=== PATIENT | female | born 1990 | race American Indian/Alaskan Native ===

== ENCOUNTER 2022-03-25 06:20 | Inpatient (IN) | payer MEDICAID ==
[2022-03-25] MEDS: LACTATED RINGERS 1,000 ML IV SCH ×2 (07:51→10:52)
[2022-03-25] MEDS ORDERED: LACTATED RINGERS 2,000 ML ONE (07:57)
[2022-03-25] MEDS ORDERED: METOCLOPRAMIDE 10 MG/2 ML INJ IV SCH (08:00)
[2022-03-25] MEDS ORDERED: BICITRA ORAL LIQD 30ML PO SCH (08:00)
[2022-03-25] MEDS ORDERED: FAMOTIDINE 20 MG/2 ML INJ IV SCH (08:00)
--- NOTE | 2022-03-25 08:13 | Ultrasound Report ---
ULTRASOUND OBSTETRIC COMPLETE INDICATION / CLINICAL INFORMATION: contractions; and rule out rupture of membranes. Clinical Gestational Age (GA) in weeks.days: 38.0 TECHNIQUE: Transabdominal. COMPARISON: None available. FINDINGS: NUMBER: Single PRESENTATION: cephalic PLACENTA: Not evaluated. MATERNAL ADNEXA: No significant abnormality. AMNIOTIC FLUID VOLUME: normal AMNIOTIC FLUID INDEX (NATALIE) in cm (if measured): 12.1 ANATOMY: anatomical survey was not performed. MEASUREMENTS: - Biparietal Diameter = 9.3 cm = 37.5 weeks.days - Head Circumference = 33.9 cm = 39.0 weeks.days - Abdominal Circumference = 36.5 cm = 40.3 weeks.days - Femur Length = 7.2 cm = 36.4 weeks.days - Estimated Weight (in grams, if calculated): 3701 +/- 548 - Heart Rate (beats per minute): 152 ADDITIONAL FINDINGS: None. PERCENTILE ESTIMATED WEIGHT (if calculated): 87 AVERAGE ULTRASOUND AGE (AUA) in weeks.days = 38.3 IMPRESSION: 1. Single intrauterine with AUA of 28.3 weeks.days 2. No significant sonographic abnormality. 3. NATALIE is within normal limits measuring 12.1 cm. Signer Name: Rodney Morrow Jr, MD Signed: 03/25/2022 8:08 AM Workstation Name: [id number]
[2022-03-25] MEDS ORDERED: BUPIVACAINE/PF (0.25%) 2.5 MG/ML 30 ML VIAL INFILTRATI ONE (08:45)
[2022-03-25] MEDS ORDERED: dexAMETHasone 20 MG/5 ML VIAL ONE (08:50)
[2022-03-25] MEDS ORDERED: KETOROLAC 30 MG/1 ML INJ ONE (08:50)
[2022-03-25] MEDS ORDERED: ONDANSETRON 4 MG/2 ML INJ ONE (08:50)
[2022-03-25] MEDS ORDERED: fentaNYL 100 MCG/2 ML INJ ONE (08:51)
[2022-03-25] MEDS ORDERED: OXYTOCIN DRIP 30 UNITS/500 ML BAG IV SCH ×3 (09:00→20:49)
[2022-03-25] MEDS ORDERED: ceFAZolin/Water 2 GM/20 ML 2 GM/20 ML SYRINGE IV NR (09:00)
--- NOTE | 2022-03-25 09:02 | Anesthesia Consultation ---
Anesthesia Consult and Med Hx - Airway Anesthetic Teeth Evaluation: Good ROM Head & Neck: Adequate Mental/Hyoid Distance: Adequate Mallampati Class: Class II Intubation Access Assessment: Probably Good - Pulmonary Exam CTA: Yes - Cardiac Exam Cardiac Exam: RRR - Pre-Operative Health Status ASA Pre-Surgery Classification: ASA2 Proposed Anesthetic Plan: Spinal Nerve Block: TAP ALEXANDREA - Pulmonary Hx Smoking: No Hx Asthma: No COPD: No Hx Pneumonia: No - Cardiovascular System Hx Hypertension: No - Central Nervous System Hx Seizures: No Hx Psychiatric Problems: No - Endocrine Hx Renal Disease: No Hx End Stage Renal Disease: No Hx Hypothyroidism: No Hx Hyperthyroidism: No - Hematic Hx Anemia: No Hx Sickle Cell Disease: No - Other Systems Hx Alcohol Use: No
[2022-03-25] MEDS ORDERED: HYDROmorphone 1 MG/1 ML INJ IV PRN ×2 (09:04)
[2022-03-25] MEDS ORDERED: PROMETHAZINE 25 MG TAB PO PRN (09:04)
[2022-03-25] MEDS ORDERED: NALOXONE 0.4 MG/1 ML INJ IV PRN ×3 (09:04→20:49)
[2022-03-25] MEDS ORDERED: PROMETHAZINE 25 MG RECT SUPP PR PRN (09:04)
[2022-03-25 09:26] LABS: Basophils # (Auto) 0.1 K/mm3 (0.0-0.1); Basophils % (Auto) 0.9 % (0.0-1.8); Eosinophils # (Auto) 0.1 K/mm3 (0.0-0.4); Eosinophils % (Auto) 0.7 % (0.0-4.3); Hematocrit 34.9 % (30.3-42.9); Hemoglobin 11.4 gm/dl (10.1-14.3); Lymphocytes # (Auto) 2.1 K/mm3 (1.2-5.4); Lymphocytes % (Auto) 22.7 % (13.4-35.0); Mean Corpuscular HGB Conc 33 % (30-34); Mean Corpuscular Volume 82 fl (79-97); Monocytes # (Auto) 0.5 K/mm3 (0.0-0.8); Monocytes % (Auto) 5.1 % (0.0-7.3); Platelet Count 228 K/mm3 (140-440); Red Blood Count 4.26 M/mm3 (3.65-5.03)
--- NOTE | 2022-03-25 10:28 | History and Physical Report ---
History of Present Illness Date of examination: 03/25/22 Date of admission: 03/25/22 Chief complaint: PROM at 5:30am this morning History of present illness: at 38.4wks by [facility] care with [facility]. Pt came to triage during previous shift with c/o LOF and same confirmed with ROM plus positive. No records were available form [facility] until in the afternoon. Initially pt desired permanent sterilization without any of her tube removed. Pt admits to movement, denies vag bleed or painful contractions or headache. 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 History: herpes (and pt taking valtrex med suppression) Social history: no significant social history - Obstetrical History Expected Date of Delivery: 04/08/22 Actual Gestation: 38 Week(s) 0 Day(s) : 4 Hx # Term Pregnancies: 2 Induced : 1 Number of Living Children: 2 Medications and Allergies Allergies Allergy/AdvReac Type Severity Reaction Status Date / Time No Known Allergies Allergy Unverified 07/26/14 11:44 Home Medications Medication Instructions Recorded Confirmed Last Taken Type Ibuprofen [Motrin] 800 mg PO Q8HR PRN 21 Days #40 03/25/22 Unknown Rx tablet Valacyclovir HCl [Valacyclovir] 1,000 mg PO DAILY 03/25/22 03/25/22 1 Day Ago History ~03/24/22 oxyCODONE /ACETAMINOPHEN [Percocet 1 tab PO Q4HR PRN 21 Days #30 tab 03/25/22 Unknown Rx 5/325] Active Meds: Active Medications Citric Acid/Sodium Citrate (Bicitra Oral Liqd 30ml) 30 ml PO PREOP QUINTIN Stop: 03/25/22 15:00 Famotidine (Famotidine 20 Mg/2 Ml Inj) 20 mg IV PREOP QUINTIN Stop: 03/25/22 15:00 Hydromorphone HCl (Hydromorphone 1 Mg/1 Ml Inj) 0.5 mg IV Q5M PRN PRN Reason: BREAK Hydromorphone HCl (Hydromorphone 1 Mg/1 Ml Inj) 0.5 mg IV Q4H PRN PRN Reason: breakthrough pain > 7/10 Lactated Ringer's (Lactated Ringers) 1,000 mls @ 2,250 mls/hr IV PREOP QUINTIN Stop: 03/26/22 09:27 Oxytocin/Sodium Chloride (Pitocin/Ns 30 Unit/500ml) 30 units in 500 mls @ 0 mls/hr IV TITR QUINTIN; Protocol Cefazolin Sodium (Ancef/Sterile Water 2 Gm/20 Ml) 2 gm in 20 mls @ 80 mls/hr IV PREOP NR; Protocol Stop: 03/25/22 17:00 Metoclopramide HCl (Metoclopramide 10 Mg/2 Ml Inj) 10 mg IV PREOP QUINTIN Stop: 03/25/22 15:00 Naloxone HCl (Naloxone 0.4 Mg/1 Ml Inj) 0.2 mg IV Q2MIN PRN PRN Reason: Res Rate </= 8 or 02 SAT < 92% Promethazine HCl (Promethazine 25 Mg Tab) 25 mg PO Q6H PRN PRN Reason: Nausea And Vomiting Promethazine HCl (Promethazine 25 Mg Rect Supp) 25 mg NH Q6H PRN PRN Reason: Nausea And Vomiting Sodium Chloride (Sodium Chloride 0.9% 10 Ml Flush Syringe) 10 ml IV PRN NR Stop: 04/05/22 23:59 Review of Systems All systems: negative (LOF) - Vital Signs Vital signs: Vital Signs Pulse Pulse Ox 83 99 03/25/22 06:38 03/25/22 06:38 Temp Pulse Resp BP Pulse Ox 99.0 F 105 H 18 134/67 99 03/25/22 07:00 03/25/22 08:55 03/25/22 07:00 03/25/22 07:00 03/25/22 08:55 - Physical Exam Breasts: Positive: deferred Lungs: Positive: Normal air movement Abdomen: Positive: soft Uterus: Positive: enlarged (non-tender gravid) - Obstetrical FHR: category 1 Uterine Contraction Monitor Mode: External Cervical Dilatation: 0.5 (per Dr. Rhodes report) Results Result Diagrams: 03/25/22 08:10 Abnormal lab results 03/25/22 03/25/22 Range/Units 06:55 08:10 MCH 27 L (28-32) pg RDW 16.0 H (13.2-15.2) % Seg Neutrophils % 70.6 H (40.0-70.0) % Membranes Rupture Positive A (Negative) All other labs normal. 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 Admit to labor and delivery for repeat c/section per pt choice; No tubal ligation per pt because she changed her mind. Discussed with her the increased risk of future placenta adhesion/acreta and pt verbalized understanding 2. NICU and Anesthesiologist notified 3. All questions encouraged and answered
[2022-03-25] MEDS ORDERED: WITCH HAZEL/ GLYCERIN PAD TP PRN ×2 (11:34→20:49)
[2022-03-25] MEDS ORDERED: HYDROCORTISONE 25 MG RECTAL SUPP PR PRN ×2 (11:34→20:49)
[2022-03-25] MEDS ORDERED: IBUPROFEN 600 MG TAB PO PRN ×2 (11:34→20:49)
[2022-03-25] MEDS ORDERED: LANOLIN/ZINC/DIMETHICONE (LANSINOH) 7 GM TP PRN ×2 (11:34→20:49)
[2022-03-25] MEDS ORDERED: ONDANSETRON 4 MG/2 ML INJ IV PRN ×2 (11:34→20:49)
[2022-03-25] MEDS ORDERED: ACETAMINOPHEN 325 MG TAB PO PRN ×2 (11:34→20:49)
[2022-03-25] MEDS ORDERED: SENNOSIDES 8.6 MG TAB PO PRN ×2 (11:34→20:49)
[2022-03-25] MEDS ORDERED: AMPICILLIN/NS 2 GM/100 ML 2 GM/100 ML BAG IV ONE (11:40)
[2022-03-25] MEDS ORDERED: ceFAZolin/STERILE WATER 2 GM/20 ML SYRINGE IV ONE (16:18)
[2022-03-25] MEDS ORDERED: LACTATED RINGERS 1,000 ML ONE (16:32)
[2022-03-25] MEDS ORDERED: PHENYLEPHRINE/NS 1,000 MCG/10 ML SYRINGE (OR USE) IV ONE (16:34)
[2022-03-25] MEDS ORDERED: ePHEDrine SULFATE 50 MG/1 ML INJ ONE (16:34)
[2022-03-25] MEDS ORDERED: miSOPROStol 200 MCG TAB ONE (17:03)
[2022-03-25] MEDS ORDERED: miSOPROStol 200 MCG TAB PR ONE (17:05)
--- NOTE | 2022-03-25 18:33 | Progress Note ---
Spinal Anesthesia Block - Spinal Anesthesia Block Start Time: 16:05 Stop Time: 16:07 Performed by:: SMILEY CALLOWAY Procedure: L34 space ID'd prep and draped NSF. Local to skin, introducer, 24 g kit needle inserted. Clear csf, neg heme, positive swirl, nabil well, comfortable. ).75% bupi with dextrose 1.7 ml with 20 mcg fent
--- NOTE | 2022-03-25 18:37 | Progress Note ---
Regional Anesthesia Block - Regional Anesthesia Block Start Time: 18:09 Stop Time: 18:16 Performed By:: SMILEY CALLOWAY Procedure: Bilateral TAP block. Echogenic 20 ga 4 in needle used, US guided using relevant anatomy. Prep NSF, 0.25% bupi 25 ml to each side, neg aspiration, nabil well. Photos with chart
--- NOTE | 2022-03-25 18:57 | Procedure Note ---
OB Delivery Note - Delivery Date of Delivery: 03/25/22 Surgeon: LISA AGOSTO Estimated blood loss: other (821cc by QBL) - Section Preop diagnosis: repeat Postop diagnosis: same (and lysis of adhesions) section procedure: repeat low transverse Disposition: floor Complications: uterine atony Narrative: Date: 03/25/22 Surgeon: Lisa Agosto MD Preop Dx: IUP at 38.0wks, previous c/section x2 Postop Dx: same and uterine atony Procedure : Repeat low transverse section Anesthesia: Spinal Intake: 1900cc Output: 250cc clear EBL: 821cc by QBL After the risks, benefits and alternatives of procedure discussed, patient signed consents and was taken to the operating room. Pt was given spinal anesthesia. After same was adequate, patient was prepped and draped in the usual sterile fashion. Vincent catheter in place and draining clear urine. Pt was given prophylactic antibiotic per protocol and time out was done Pfannenstiel skin incision was made and taken sharply to the fascia and the incision extended using electrocautery. Superior edge of the fascia was grasped with aron clamps and the rectus muscle using blunt dissection and also using electrocautery. Lower portion of the fascia also with electrocautery. Rectus muscle in the midline and Peritoneal cavity entered sharply and the bladder very cephalad but no injury occured. The bladder flap was created sharply using metzenbaum scissors. Lower uterine segment then entered transversely and amniotic sac entered using allys clamps. Uterine incision extended using bandage scissors. Infant delivered, bulb suctioned, cord clamped and baby handed to thomas b. finan centersharlene. Placenta then delivered completely and uterine cavity cleared of all clots and debri. The uterus was not exteriorized and closed in 2 layers using 0-monocryl suture in a running locked fashion and then an additional layer of imbrication suture. Excellent hemostasis noted. The gutters were cleared of clots and debri and anterior peritoneum and rectus muscle with scar reapproximated. Figure of 8 suture placed on left for oozing from rectus muscle that require 3 figure of 8 suture for adequate hemostasis. The remaining rectus muscle reapproximated using 0-vicryl suture in a running fa shion. Rectus fascia closed with 0-vicryl suture and subcutaneous tissue copiously irrigated with normal saline and re-approximated using 3-0 vicryl] suture. Excellent hemostasis remains. The skin was closed with 4-0 monocryl suture and steristrips placed with pressure dressing. Sponge, lap, instrument and needle counts x2 were normal. Patient tolerated the procedure well and was taken to recovery room stable. Uterine atony treated with IV pitocin and cytotec 800mcg per rectum. Findings: Viable female infant, APGARS 9/9 and weight 3590g. Normal uterus, tubes and ovaries. - A at 1 minute: 9 at 5 minutes: 9 Infant Gender: Female (wt 3590g; clear amniotic fluid)
[2022-03-25] MEDS ORDERED: MORPHINE 4 MG/1 ML INJ IV PRN (20:49)
[2022-03-25] MEDS ORDERED: SIMETHICONE 80 MG CHEW TAB PO PRN (20:49)
[2022-03-25] MEDS ORDERED: MAGNESIUM HYDROXIDE (MOM) ORAL LIQD UDC PO PRN (20:49)
[2022-03-25] MEDS ORDERED: IBUPROFEN 800 MG TAB PO PRN (20:49)
[2022-03-25] MEDS ORDERED: D5W/LACTATED RINGERS 1,000 ML IV SCH (22:00)
[2022-03-25] MEDS: MORPHINE 4 MG/1 ML INJ IV PRN (22:21)
[2022-03-26] MEDS: MORPHINE 4 MG/1 ML INJ IV PRN ×2 (02:22→07:49)
[2022-03-26 04:23] LABS: Hemoglobin 9.3 gm/dl (10.1-14.3)
[2022-03-26] MEDS ORDERED: PRENATAL VIT27-FE FUMARATE-FOLIC ACID VIT TAB PO SCH (10:00)
[2022-03-26] MEDS ORDERED: FERROUS SULFATE 325 MG TAB PO SCH (10:00)
[2022-03-26 11:14] LABS: Basophils # (Auto) 0.1 K/mm3 (0.0-0.1); Basophils % (Auto) 0.5 % (0.0-1.8); Eosinophils % (Auto) 0.2 % (0.0-4.3); Hematocrit 32.1 % (30.3-42.9); Hemoglobin 10.5 gm/dl (10.1-14.3); Lymphocytes # (Auto) 2.7 K/mm3 (1.2-5.4); Lymphocytes % (Auto) 16.7 % (13.4-35.0); Mean Corpuscular HGB Conc 33 % (30-34); Mean Corpuscular Volume 82 fl (79-97); Monocytes # (Auto) 1.4 K/mm3 (0.0-0.8); Monocytes % (Auto) 8.7 % (0.0-7.3); Platelet Count 247 K/mm3 (140-440); Red Cell Distribution Width 16.1 % (13.2-15.2)
[2022-03-26] MEDS: FERROUS SULFATE 325 MG TAB PO SCH (11:32)
[2022-03-26] MEDS: oxyCODONE /ACETAMINOPHEN 5-325MG TAB PO PRN ×2 (11:33→19:57)
[2022-03-26] MEDS: PRENATAL VIT27-FE FUMARATE-FOLIC ACID VIT TAB PO SCH (11:33)
[2022-03-26] MEDS: AZITHROMYCIN/NS 500 MG/250 ML 500 MG/250 ML BAG IV SCH (14:20)
[2022-03-26] MEDS: IBUPROFEN 800 MG TAB PO PRN (15:39)
[2022-03-26] MEDS: SIMETHICONE 80 MG CHEW TAB PO PRN (15:43)
--- NOTE | 2022-03-26 16:33 | Post Anesthesia Evaluation ---
- Post Anesthesia Evaluation Patient Participated: Yes Airway Patent: Yes Stable Respiratory Function: Yes Nausea/Vomiting: No Temp > 96.8F: Yes Pain Manageable: Yes Adequeate Hydration: Yes Anesthesia Complications: No Block Receding Appropriately: Yes Patient on Ventilator: No
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
[2022-03-26] MEDS: MAGNESIUM HYDROXIDE (MOM) ORAL LIQD UDC PO PRN (19:58)
[2022-03-27] MEDS: oxyCODONE /ACETAMINOPHEN 5-325MG TAB PO PRN ×3 (04:22→21:01)
[2022-03-27] MEDS: IBUPROFEN 800 MG TAB PO PRN ×2 (04:23→05:52)
[2022-03-27] MEDS: SIMETHICONE 80 MG CHEW TAB PO PRN (09:10)
[2022-03-27] MEDS: PRENATAL VIT27-FE FUMARATE-FOLIC ACID VIT TAB PO SCH (09:10)
[2022-03-27] MEDS: FERROUS SULFATE 325 MG TAB PO SCH (09:12)
--- NOTE | 2022-03-27 11:20 | Progress Note ---
Assessment and Plan A: Postpartm/postop day 2 S/P repeat LTCS with lysis of adhesions. Mild leukocytosis. Anemia. P: Repeat CBC. Iron supplementation. Continue routine /postop care. Anticipate discharge home tomorrow if patient continues to do well. Subjective - Subjective Date of service: 03/27/22 Principal diagnosis: day 2 S/P repeat LTCS with lysis of adhesions Patient reports: appetite normal, voiding normally, pain well controlled, flatus, ambulating normally, no dizzy ambulation, no nauseated : doing well Objective - Vital Signs Latest vital signs: Vital Signs Temp Pulse Resp BP Pulse Ox Pulse Ox 03/27/22 08:30 97 03/27/22 07:32 97.8 F 89 18 101/72 97 03/27/22 06:44 18 03/27/22 05:52 18 03/27/22 05:22 18 03/27/22 04:22 18 03/27/22 01:09 97.9 F 88 20 108/68 97 03/26/22 21:32 99 03/26/22 20:57 18 03/26/22 19:57 18 03/26/22 16:54 98.4 F 89 20 104/62 98 03/26/22 12:12 98.5 F 77 16 106/64 99 Intake and Output 03/26/22 03/27/22 03/27/22 23:59 07:59 15:59 Intake Total 480 360 120 Balance 480 360 120 Intake: Oral 480 360 120 Other: Total, Intake Amount 240 120 120 # Voids Void 1 1 1 - Exam Cardiovascular: Present: Regular rate Lungs: Present: Clear to auscultation Abdomen: Present: normal appearance, soft, normal bowel sounds. Absent: distention, tenderness, guarding, rigidity Uterus: Present: normal, firm, fundal height below umbilicus (fundus firm and midline at 2 FB below umbilicus). Absent: bogginess, tenderness Extremities: Absent: tenderness Incision: Present: dry, intact
[2022-03-27 12:26] LABS: Basophils # (Auto) 0.1 K/mm3 (0.0-0.1); Basophils % (Auto) 0.8 % (0.0-1.8); Eosinophils # (Auto) 0.2 K/mm3 (0.0-0.4); Eosinophils % (Auto) 1.5 % (0.0-4.3); Hematocrit 29.4 % (30.3-42.9); Hemoglobin 9.4 gm/dl (10.1-14.3); Lymphocytes # (Auto) 2.9 K/mm3 (1.2-5.4); Lymphocytes % (Auto) 25.4 % (13.4-35.0); Mean Corpuscular HGB Conc 32 % (30-34); Mean Corpuscular Volume 82 fl (79-97); Monocytes # (Auto) 0.6 K/mm3 (0.0-0.8); Monocytes % (Auto) 4.9 % (0.0-7.3); Platelet Count 265 K/mm3 (140-440); Red Blood Count 3.61 M/mm3 (3.65-5.03); Red Cell Distribution Width 15.6 % (13.2-15.2)
[2022-03-27] MEDS: AZITHROMYCIN/NS 500 MG/250 ML 500 MG/250 ML BAG IV SCH (14:19)
[2022-03-28] MEDS: oxyCODONE /ACETAMINOPHEN 5-325MG TAB PO PRN (06:09)
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
[2022-03-28] MEDS: MAGNESIUM HYDROXIDE (MOM) ORAL LIQD UDC PO PRN (08:58)
[2022-03-28] MEDS: FERROUS SULFATE 325 MG TAB PO SCH (08:59)
[2022-03-28] MEDS ORDERED: DOCUSATE SODIUM 100 MG CAP PO SCH (10:00)
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
[2022-03-28 16:37] VITALS: BP 120/77
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
== END 2022-03-28 17:20 | disposition home or self-care (01) | DRG 765 ==
LOC: TRG 06:20 → APU 06:21 → TRG 08:30 → APU 11:34 → UNDOADMIN 11:34 → EEVIPCON 11:35 → APU 11:35 → OB 19:51
PROVIDERS: ADMIT Obstetrics & Gynecology; ATTEND Obstetrics & Gynecology
PROC: 10D00Z1 Extraction of Products of Conception, Low, Open Approach (ICD-10-PCS; principal; 2022-03-25)
DX: O42.02 Full-term premature rupture of membranes, onset of labor within 24 hours of rupture (principal); O98.52 Other viral diseases complicating childbirth; O34.211 Maternal care for low transverse scar from previous cesarean delivery; Z37.0 Single live birth; Z20.822 Contact with and (suspected) exposure to COVID-19; Z3A.38 38 weeks gestation of pregnancy; B00.9 Herpesviral infection, unspecified; O62.2 Other uterine inertia; F32.A Depression, unspecified; F41.9 Anxiety disorder, unspecified; O90.81 Anemia of the puerperium
CPT/HCPCS: 36415; 76816; 84112; 85014; 85018; 85025; 86850; 86900; 86901; G0378; J3490; J7060; J0456; J0690; J1100; J1885; J2270; J2370; J2405; J2765; J3010; J7120; J7121; U0003